=== PATIENT | female | born 1990 | race African-American/Black ===

== ENCOUNTER 2018-04-08 15:55 | Inpatient (IN) | payer MEDICAID, OTHER ==
[~2018-04-08] VITALS: Ht 154.9 cm; Wt 50.4 kg
[2018-04-08 18:30] LABS: BASOPHILS % (AUTO) 0.2 % (0.0-2.0); EOSINOPHILS % (AUTO) 0.2 % (1.0-6.0); HEMATOCRIT 37.8 % (36-46); HEMOGLOBIN 12.7 g/dL (12.0-16.0); LYMPHOCYTES # (AUTO) 1.5 K/uL (1.0-4.8); LYMPHOCYTES % (AUTO) 19.4 % (22.0-44.0); MEAN CORPUSCULAR HEMOGLOBIN 31.9 pg (26.0-34.0); MEAN CORPUSCULAR HGB CONC 33.4 G/dL (31.0-37.0); MEAN CORPUSCULAR VOLUME 96 fL (80-100); MONOCYTES # (AUTO) 0.4 K/uL (0.1-1.0); MONOCYTES % (AUTO) 5.5 % (2.0-9.0); NEUTROPHILS # (AUTO) 5.6 K/uL (1.8-7.7); NEUTROPHILS % (AUTO) 74.7 % (40.0-70.0); PLATELET COUNT (AUTO) 293 K/uL (150-450); RED BLOOD CELL COUNT(AUTO) 3.96 MIL/uL (4.00-5.20); RED CELL DISTRIBUTION WIDTH 12.6 % (11.5-14.5)
[2018-04-08 18:52] LABS: ANION GAP 7 mmol/L (8-16); CALCIUM, TOTAL 8.4 mg/dL (8.8-10.5); CARBON DIOXIDE 27 mmol/L (22-29); CHLORIDE 104 mmol/L (98-107); CREATININE 0.79 mg/dL (0.60-1.30); GLOMERULAR FILTR. RATE CALC > 60 mL/min (>60); GLUCOSE,RANDOM 78 mg/dL (70-110); POTASSIUM 3.7 mmol/L (3.5-5.1); SODIUM SERUM 138 mmol/L (136-145); UREA NITROGEN, BLOOD 14 mg/dL (7-18)
[2018-04-08 18:57] LABS: ALANINE AMINOTRANSFERASE 12 U/L (12-78); ALBUMIN 3.8 g/dL (3.4-5.0); ALKALINE PHOSPHATASE 56 U/L (46-116); ASPARTATE AMINOTRANSFERASE 15 U/L (15-37); BILIRUBIN,TOTAL 0.3 mg/dL (0.1-1.0); HCG,QUANTITATIVE < 1 mIU/mL (0-6)
[2018-04-08 19:04] LABS: AMPHET/METH SCREEN,URINE NEGATIVE (NEGATIVE); BARBITURATE SCREEN, URINE NEGATIVE (NEGATIVE); BENZODIAZEPINES SCREEN,URINE NEGATIVE (NEGATIVE); CANNABINOID SCREEN,URINE POSITIVE (NEGATIVE); COCAINE SCREEN,URINE NEGATIVE (NEGATIVE); METHADONE SCREEN, URINE NEGATIVE (NEGATIVE); OPIATE SCREEN,URINE NEGATIVE (NEGATIVE)
[2018-04-08 19:05] LABS: PHENCYCLIDINE SCREEN,URINE NEGATIVE (NEGATIVE)
[2018-04-08] MEDS ORDERED: DiphenhydrAMINE HCL 50 MG/ML VIAL IM ONE (19:30)
[2018-04-08] MEDS ORDERED: HALOPERIDOL LACTATE 5 MG/ML VIAL IM ONE (19:30)
[2018-04-08] MEDS ORDERED: LORazepam 2 MG/ML VIAL IM ONE (19:30)
[2018-04-08] MEDS ORDERED: HALOPERIDOL 5 MG TABLET PO PRN (20:30)
[2018-04-08] MEDS ORDERED: ZOLPIDEM TARTRATE 10 MG TABLET PO PRN (20:30)
[2018-04-08] MEDS ORDERED: LORazepam 2 MG TABLET PO PRN (20:30)
[2018-04-08 23:32] LABS: APPEARANCE,URINE CLOUDY (CLEAR); BILIRUBIN,URINE NEGATIVE (NEGATIVE); GLUCOSE, URINE (UA) NEGATIVE (NEGATIVE); KETONES,URINE 15 mg/dL (NEGATIVE); LEUKOCYTE ESTERASE ,URINE NEGATIVE (NEGATIVE); NITRATE,URINE NEGATIVE (NEGATIVE); OCCULT BLOOD,URINE NEGATIVE (NEGATIVE); PH,URINE 6.5 (5.0-8.0); PROTEIN,URINE TRACE (NEGATIVE)
[2018-04-09 01:25] VITALS: BP 110/62
[2018-04-09 08:42] VITALS: BP 111/66
[2018-04-09 09:03] LABS: CHOL/HDL RATIO 3.5 (3.9-5.7); FREE T4 (FREE THYROXINE) 1.09 ng/dL (0.76-1.46); THYROID STIMULATING HORMONE 1.85 uIU/mL (0.36-3.74)
[2018-04-09 16:10] VITALS: BP 123/69
[2018-04-10 02:30] VITALS: BP 130/78
[2018-04-10 16:14] VITALS: BP 101/62
[2018-04-11 06:15] VITALS: BP 105/76
[2018-04-11 08:27] VITALS: BP 108/73
[2018-04-11] MEDS: RisperiDONE 1 MG TABLET PO SCH ×2 (09:01→16:39)
[2018-04-11] MEDS: LITHIUM CARBONATE 300 MG CAPSULE PO SCH ×2 (09:02→16:38)
[2018-04-11 16:25] VITALS: BP 111/75
[2018-04-12 03:13] VITALS: BP 135/76
[2018-04-12 08:26] VITALS: BP 100/66
[2018-04-12] MEDS: LITHIUM CARBONATE 300 MG CAPSULE PO SCH ×2 (08:45→16:30)
[2018-04-12] MEDS: RisperiDONE 1 MG TABLET PO SCH ×2 (08:45→16:30)
[2018-04-12 16:15] VITALS: BP 109/73
[2018-04-13 04:58] VITALS: BP 107/71
[2018-04-13] MEDS: LITHIUM CARBONATE 300 MG CAPSULE PO SCH ×2 (08:00→16:15)
[2018-04-13] MEDS: RisperiDONE 1 MG TABLET PO SCH ×2 (08:00→16:15)
[2018-04-13 08:22] VITALS: BP 100/61
[2018-04-13] MEDS ORDERED: MAG HYDROX/AL HYDROX/SIMETH ES 30 ML SUSPENSION UDCUP PO PRN (13:45)
[2018-04-13 16:06] VITALS: BP 100/59
[2018-04-14 07:06] VITALS: BP 100/62
[2018-04-14 08:17] VITALS: BP 100/62
[2018-04-14] MEDS: LITHIUM CARBONATE 300 MG CAPSULE PO SCH ×2 (08:32→16:11)
[2018-04-14] MEDS: RisperiDONE 1 MG TABLET PO SCH ×2 (08:32→16:11)
[2018-04-14] MEDS ORDERED: RISP1 PO (11:47)
[2018-04-14] MEDS ORDERED: LITH300C3 PO (11:47)
[2018-04-14 16:00] VITALS: BP 108/61
== END 2018-04-14 17:00 | disposition home or self-care (01) | DRG 750 ==
LOC: EMS 15:57 → B3A 20:30
PROVIDERS: ADMIT Psychiatry & Neurology Psychiatry; ATTEND Psychiatry & Neurology Psychiatry
DX: F25.9 Schizoaffective disorder, unspecified (principal); Z78.1 Physical restraint status; F12.90 Cannabis use, unspecified, uncomplicated; F17.210 Nicotine dependence, cigarettes, uncomplicated; R82.4 Acetonuria; Z28.21 Immunization not carried out because of patient refusal; Z72.89 Other problems related to lifestyle
CPT/HCPCS: 83036; 84439; 84443; 90686; 96372; G0480; J1200; J1630; J2060